=== PATIENT | female | born 1970 | race Caucasian/White ===

== ENCOUNTER 2016-08-30 18:45 | Emergency (ER) | payer BC | END 2016-08-30 21:42 | disposition left against medical advice (07) | LOC: D.ER 18:45 | DX: T78.40XA Allergy, unspecified, initial encounter (principal); X58.XXXA Exposure to other specified factors, initial encounter ==

== ENCOUNTER → 2016-10-30 07:49 | Outpatient (CLI) | payer BC ==
[2016-10-30 08:52] LABS: THYROID STIMULATING HORMONE 1.86 uIU/mL (0.36-3.74)
[2016-10-31 08:22] LABS: FOLATE (FOLIC ACID) - SERUM >20.0 ng/mL (>3.0)
== END | disposition home or self-care (01) ==
LOC: D.MRI 07:45
PROVIDERS: Psychiatry & Neurology Neurology
DX: G43.719 Chronic migraine without aura, intractable, without status migrainosus (principal)